=== PATIENT | male | born 1980 | race Caucasian/White ===

== ENCOUNTER 2017-03-06 10:50 | Emergency (ER) | payer OTHER ==
[~2017-03-06] VITALS: Ht 185.4 cm; Wt 122.0 kg
[2017-03-06 11:15] VITALS: BP 116/79
[2017-03-06] MEDS ORDERED: cefTRIAXone SOD 1,000 MG VL IM ONE (11:45)
[2017-03-06] MEDS ORDERED: KETOROLAC TROMETH 60MG/2ML VIAL IM ONE (11:45)
== END 2017-03-06 12:12 | disposition home or self-care (01) ==
LOC: ER 10:50
DX: L03.311 Cellulitis of abdominal wall (principal); F17.210 Nicotine dependence, cigarettes, uncomplicated; I25.2 Old myocardial infarction; Z90.49 Acquired absence of other specified parts of digestive tract; Z88.0 Allergy status to penicillin
CPT/HCPCS: 96372; 99284; J0696; J1885